=== PATIENT | female | born 1930 | race African-American/Black ===

== ENCOUNTER 2019-07-16 21:04 | Emergency (ER) | payer OTHER ==
[2019-07-16 22:14] LABS: Absolute Lymphocytes (CBC) 2.2 K/uL (0.7-4.9); Basophils % 0.5 % (0-1.3); Hematocrit 34.3 % (36.0-45.0); Lymphocytes % 30.5 % (15.3-44.8); MPV 8.1 fL (7.6-11.3); RBC Red Blood Cell Count 3.68 M/uL (3.86-4.86)
[2019-07-16 22:19] LABS: ALT/SGPT 25 U/L (12-78); AST/SGOT 20 U/L (15-37); Albumin 3.5 g/dL (3.4-5.0); Alkaline Phosphatase 77 U/L (45-117); BUN Blood Urea Nitrogen 21 mg/dL (7-18); Bicarbonate 24 mmol/L (21-32); Bilirubin Direct 0.1 mg/dL (0-0.2); Bilirubin Total 0.3 mg/dL (0.2-1.0); CKMB Creatine Kinase MB < 1.0 ng/mL (0.3-3.6); Creatine Phosphokinase 69 U/L (26-192); Glucose Level 114 mg/dL (74-106); Lipase 201 U/L (73-393); Magnesium 2.1 mg/dL (1.8-2.4); Potassium 3.8 mmol/L (3.5-5.1); Protein, Total 6.8 g/dL (6.4-8.2); Sodium Level 142 mmol/L (136-145); Troponin (Emerg Dept Use Only) < 0.02 ng/mL (0.0-0.045)
[2019-07-17 01:23] LABS: Urine Blood NEGATIVE (NEG); Urine Glucose NEGATIVE (NEG); Urine Protein NEGATIVE (NEG)
[2019-07-17 02:08] LABS: Urine Bacteria <20 /HPF (<20); Urine Culture Reflex Order NOT NEEDED; Urine RBC <5 /HPF (NONE SEEN)
--- NOTE | 2019-07-17 02:17 | ER ---
Nurse's Notes [facility] Name: Amanda Aj Age: 88 yrs Sex: Female : 1930 Arrival Date: 07/16/2019 Time: 21:07 Bed 14 Private MD: Diagnosis: NEAR SYNCOPE Presentation: 07/16 21:20 Presenting complaint: pt granddaughter stated pt collapsed Tuesday at her brother's ak1 . pt denies any pain. pt states she does not recall the event. pt A\T\OX4 at this time, ambulatory. Transition of care: patient was not received from another setting of care. Onset of symptoms was July 14, 2019. Risk Assessment: Do you want to hurt yourself or someone else? Patient reports no desire to harm self or others. Initial Sepsis Screen: Does the patient meet any 2 criteria? No. Patient's initial sepsis screen is negative. Does the patient have a suspected source of infection? No. Patient's initial sepsis screen is negative. Care prior to arrival: None. 21:20 Acuity: TONY 3 ak1 21:20 Method Of Arrival: Ambulatory ak1 Triage Assessment: 21:22 General: Appears in no apparent distress. Behavior is calm, cooperative, appropriate ak1 for age. Pain: Denies pain. Historical: - Allergies: 21:22 No Known Allergies; ak1 - Home Meds: 21:22 aspirin 81 mg Oral TbEC 1 tab once daily [Active]; atorvastatin 10 mg oral tab 1 tab ak1 once daily [Active]; amlodipine oral [Active]; omeprazole Oral [Active]; - PMHx: 21:22 Depression; Hyperlipidemia; Hypertension; GERD; ak1 - PSHx: 21:22 left kindy removed; Hernia repair; Hysterectomy; ak1 - Immunization history:: Adult Immunizations unknown. - Social history:: Smoking status: Patient/guardian denies using tobacco. - Ebola Screening: : No symptoms or risks identified at this time. Screenin:23 Abuse screen: Denies threats or abuse. Denies injuries from another. Nutritional ak1 screening: No deficits noted. Tuberculosis screening: No symptoms or risk factors identified. Fall Risk Fall in past 12 months (25 points). Assessment: 21:41 General: Appears in no apparent distress. Behavior is calm, cooperative, appropriate lp1 for age. Pain: Denies pain. Neuro: Level of Consciousness is awake, alert, obeys commands, Oriented to person, place, situation, Gait is steady. Cardiovascular: Patient's skin is warm and dry. Respiratory: Respiratory effort is even, unlabored, Breath sounds are clear bilaterally. GI: No deficits noted. : No signs and/or symptoms were reported regarding the genitourinary system. EENT: No signs and/or symptoms were reported regarding the EENT system. Derm: Skin is intact, Skin is dry, Skin is normal. Musculoskeletal: No deficits noted. 22:45 Reassessment: Patient appears in no apparent distress at this time. Patient and/or lp1 family updated on plan of care and expected duration. Pain level reassessed. Patient is alert, oriented x 3, equal unlabored respirations, skin warm/dry/pink. 23:45 Reassessment: Patient appears in no apparent distress at this time. No changes from lp1 previously documented assessment. 07/17 00:30 Reassessment: Aware of waiting for repeat lab results; granddaughter at bedside. lp1 01:15 Reassessment: Patient ambulated to bathroom at this time; gait steady. lp1 02:00 Reassessment: Patient appears in no apparent distress at this time. Patient is alert, lp1 oriented x 3, equal unlabored respirations, skin warm/dry/pink. Patient denies pain at this time. Vital Signs: 07/16 21:19 BP 125 / 87; Pulse 74; Resp 16; Temp 97.6; Pulse Ox 99% on R/A; Weight 56.7 kg (R); ak1 Height 5 ft. 6 in. (167.64 cm) (R); Pain 0/10; 22:00 BP 124 / 76; Pulse 74; Resp 14; Pulse Ox 99% on R/A; lp1 22:30 BP 132 / 77; Pulse 71; Resp 12; Pulse Ox 98% on R/A; lp1 23:00 BP 135 / 76; Pulse 72; Resp 12; Pulse Ox 99% on R/A; lp1 07/17 00:00 BP 141 / 84; Pulse 66; Resp 13; Pulse Ox 98% on R/A; lp1 01:00 BP 155 / 71; Pulse 65; Resp 17; Pulse Ox 99% on R/A; lp1 02:00 BP 144 / 74; Pulse 64; Resp 18; Pulse Ox 98% on R/A; Pain 0/10; lp1 07/16 21:19 Body Mass Index 20.18 (56.70 kg, 167.64 cm) ak1 ED Course: 07/16 21:07 Patient arrived in ED. ds1 21:11 Mj Jenkins MD is Attending Physician. tw4 21:19 Arm band placed on Patient placed in an exam room, on a stretcher, Patient notified of ak1 wait time. 21:20 Destinee Johnston, RN is Primary Nurse. lp1 21:21 Triage completed. ak1 21:23 Patient has correct armband on for positive identification. Placed in gown. Bed in low ak1 position. Call light in reach. Side rails up X 1. Adult w/ patient. Pulse ox on. NIBP on. 21:40 Inserted saline lock: 22 gauge in right wrist, using aseptic technique. Blood collected.ds4 21:49 CPK Sent. ds4 21:49 Hepatic Function Sent. ds4 21:49 Lipase Sent. ds4 21:49 Magnesium Sent. ds4 21:50 Protime (+inr) Sent. ds4 21:50 Ptt, Activated Sent. ds4 21:50 Troponin (emerg Dept Use Only) Sent. ds4 21:50 Ckmb Sent. ds4 21:50 CBC with Diff Sent. ds4 21:50 Basic Metabolic Panel Sent. ds4 21:50 Basic Metabolic Panel Sent. ds4 21:50 CBC with Automated Diff Sent. ds4 21:50 CKMB Creatine Kinase MB Sent. ds4 21:59 CT completed. Patient tolerated procedure well. Patient moved back from CT. wy 22:01 CT Head C Spine In Process Unspecified. EDMS 07/17 00:43 No provider procedures requiring assistance completed. lp1 01:12 Troponin (emerg Dept Use Only) Sent. ds4 01:14 Urine Microscopic Only Sent. ds4 02:30 IV discontinued, No redness/swelling at site. Pressure dressing applied. lp1 Administered Medications: No medications were administered Outcome: 02:16 Discharge ordered by . tw4 02:31 Discharged to home ambulatory, with family. lp1 02:31 Condition: good 02:31 Discharge instructions given to patient, family, Instructed on discharge instructions, follow up and referral plans. Demonstrated understanding of instructions, follow-up care. 02:31 Patient left the ED. lp1 Signatures: Dispatcher [employer] EDMS Elida Jasso ds1 Destinee Johnston RN RN lp1 Oli Harris ds4 Dorie Watson RN RN ak1 Jayson Owens Terrence, MD MD tw4
--- NOTE | 2019-07-17 02:17 | EDPHYS ---
Physician Documentation [facility] Name: Amanda Aj Age: 88 yrs Sex: Female : 1930 Arrival Date: 07/16/2019 Time: 21:07 Bed 14 Private MD: ED Physician Mj Jenkins Historical: - Allergies: 07/16 21:22 No Known Allergies; ak1 - Home Meds: 21:22 aspirin 81 mg Oral TbEC 1 tab once daily [Active]; atorvastatin 10 mg oral tab 1 tab ak1 once daily [Active]; amlodipine oral [Active]; omeprazole Oral [Active]; - PMHx: 21:22 Depression; Hyperlipidemia; Hypertension; GERD; ak1 - PSHx: 21:22 left kindy removed; Hernia repair; Hysterectomy; ak1 - Immunization history:: Adult Immunizations unknown. - Social history:: Smoking status: Patient/guardian denies using tobacco. - Ebola Screening: : No symptoms or risks identified at this time. Vital Signs: 21:19 BP 125 / 87; Pulse 74; Resp 16; Temp 97.6; Pulse Ox 99% on R/A; Weight 56.7 kg (R); ak1 Height 5 ft. 6 in. (167.64 cm) (R); Pain 0/10; 22:00 BP 124 / 76; Pulse 74; Resp 14; Pulse Ox 99% on R/A; lp1 22:30 BP 132 / 77; Pulse 71; Resp 12; Pulse Ox 98% on R/A; lp1 23:00 BP 135 / 76; Pulse 72; Resp 12; Pulse Ox 99% on R/A; lp1 07/17 00:00 BP 141 / 84; Pulse 66; Resp 13; Pulse Ox 98% on R/A; lp1 01:00 BP 155 / 71; Pulse 65; Resp 17; Pulse Ox 99% on R/A; lp1 02:00 BP 144 / 74; Pulse 64; Resp 18; Pulse Ox 98% on R/A; Pain 0/10; lp1 07/16 21:19 Body Mass Index 20.18 (56.70 kg, 167.64 cm) ak1 MDM: 07/16 21:11 Patient medically screened. tw4 07/16 21:18 Order name: Basic Metabolic Panel tw4 07/16 21:18 Order name: CBC with Diff 07/16 21:18 Order name: Ckmb 07/16 21:18 Order name: CPK; Complete Time: 23:02 4 07/16 23:02 Interpretation: Within normal limits: CPK 69. 07/16 21:18 Order name: Hepatic Function; Complete Time: 23:02 4 07/16 23:02 Interpretation: Within normal limits. 07/16 21:18 Order name: Lipase; Complete Time: 23:02 tw4 07/16 23:02 Interpretation: Within normal limits: LIP 201. 07/16 21:18 Order name: Magnesium; Complete Time: 23:02 07/16 23:02 Interpretation: Within normal limits: MG 2.1. 07/16 21:18 Order name: Protime (+inr); Complete Time: 23:02 07/16 23:02 Interpretation: Within normal limits: PT 11.8. 07/16 21:18 Order name: Ptt, Activated; Complete Time: 23:02 07/16 23:03 Interpretation: Within normal limits: PTT 28.1. 07/16 21:18 Order name: Troponin (emerg Dept Use Only); Complete Time: 23:02 07/16 23:03 Interpretation: Within normal limits: TROPED < 0.02. 07/16 21:19 Order name: Basic Metabolic Panel; Complete Time: 23:02 EDMS 07/16 23:02 Interpretation: Normal except: CL 110; BUN 21; CRE 1.62; GFR 36; GLUC 114. 07/16 21:19 Order name: CBC with Automated Diff; Complete Time: 23:02 EDMS 07/16 23:02 Interpretation: Normal except: RBC 3.68; HGB 11.5; HCT 34.3. 07/16 21:19 Order name: CKMB Creatine Kinase MB; Complete Time: 23:02 EDMS 07/16 23:03 Interpretation: Within normal limits: CKMB < 1.0. 07/16 23:45 Order name: Troponin (emerg Dept Use Only) 07/16 21:18 Order name: Call for Old EKG; Complete Time: 21:21 07/16 21:18 Order name: CT Head C Spine 07/16 21:18 Order name: EKG; Complete Time: 21:19 tw4 07/16 21:18 Order name: Cardiac monitoring; Complete Time: 21:21 tw4 07/16 21:18 Order name: EKG - Nurse/Tech; Complete Time: 21:21 tw4 07/16 21:18 Order name: IV Saline Lock; Complete Time: 21:49 tw4 07/16 21:18 Order name: Labs collected and sent; Complete Time: :49 tw4 07/16 21:18 Order name: NPO; Complete Time: :28 tw4 07/16 21:18 Order name: O2 Per Protocol; Complete Time: 21:21 tw4 07/16 21:18 Order name: O2 Sat Monitoring; Complete Time: 21:21 tw4 07/16 21:18 Order name: Urine Dipstick-Ancillary (obtain specimen); Complete Time: 01:14 tw4 07/17 00:50 Order name: Urine Dipstick-Ancillary (obtain specimen); Complete Time: 01:12 tw4 07/17 01:12 Order name: Urine Microscopic Only; Complete Time: 02:16 ds4 07/17 01:14 Order name: Urine Dipstick--Ancillary (enter results) ds4 Administered Medications: No medications were administered Disposition: 07/17/19 02:16 Discharged to Home. Impression: NEAR SYNCOPE. - Condition is Stable. - Discharge Instructions: Near-Syncope, [id number], Vasovagal Syncope, Adult. - Medication Reconciliation Form, Thank You Letter, Antibiotic Education, Prescription Opioid Use form. - Follow up: Private Physician; When: Upon discharge from the Emergency Department; Reason: Recheck today's complaints, Continuance of care. - Problem is new. - Symptoms have improved. Addendum: 08/07/2019 05:59 Addendum: HPI: Pt is a 88 year old female that comes to the ED accompanied by her t w4 daughter after having a near syncope episode at a that she attended 2 days ago. Pt does not recall the event. PT denies any symptoms currently. Pt denies CP, SOB abdominal pain and nausea vomiting or diarrhea . Addendum: ROS: Neuro: positive for near syncope, negative for weakness, numbness CV:negative for CP, palpitations Abdomen: negative for abdominal pain, nausea, vomiting All other systems negative except a marked . Addendum: PE: Gen: well developed elderly female in NAD HEENT: PERRLA, EOMI Neck: supple, nontender, good ROM Resp: CTAB, CV: RRR nl S1, S2 Abdomen: nontender, nondistended good BS, no masses , no pulsatile masses Ext: nontender, no edema Neuro: alert and oriented times three, CN grossly intact, strength and sensation intact. Addendum: ED: EKG unremarkable, laboratory evaluation unremarkable CT imaging and X-ray negative. Pt most likely had a vasovagal episode with lack of symtpoms. Will have patient followup as an outpatient with PCP.Pt instructed to return to the Ed if symptoms worsen. Addendum: Diff diagnosis: AAA, PE, CVA, AL. Signatures: Dispatcher [employer] EDMS Destinee Johnston, RN RN lp1 Dorie Watson RN RN ak1 Mj Jenkins MD MD tw4 Kahtarina Coker mw2 Corrections: (The following items were deleted from the chart) 07/17 02:31 02:16 07/17/2019 02:16 Discharged to Home. Impression: NEAR SYNCOPE. Condition is lp1 Stable. Forms are Medication Reconciliation Form, Thank You Letter, Antibiotic Education, Prescription Opioid Use. Follow up: Private Physician; When: Upon discharge from the Emergency Department; Reason: Recheck today's complaints, Continuance of care. Problem is new. Symptoms have improved. tw4
[2019-07-17 02:37] VITALS: TEMP 97.6
[2019-07-17 02:45] VITALS: BP 144/74; O2SAT 98
--- NOTE | 2019-07-17 10:18 | EKG ---
Test Date: 2019-07-16 Test Time: 21:15:28 [employer] Consult[employer] Insurance: [employer] MEASUREMENT RESULTS: Intervals: Rate: 73 [place]: 150 QRSD: 74 QT: 390 QTc: 429 [place]: P: 88 [place]: 150 QRS: 46 T: 27 INTERPRETIVE STATEMENTS: Normal sinus rhythm Nonspecific ST abnormality Abnormal ECG No previous ECG available for comparison Electronically Signed On 07-17-19 10:16:09 CDT by Jaylan Bailey
--- NOTE | 2019-07-17 10:22 | RAD REPORT ---
EXAM DESCRIPTION: CT - Head C Spine Mpr Wo Con - 07/17/2019 8:55 am CLINICAL HISTORY: Syncope COMPARISON: None. TECHNIQUE: CT HEAD NECK WITHOUT IV CONTRAST on 07/16/2019 9:18 PM CDT This exam was performed according to our departmental dose-optimization program, which includes autom ated exposure control, adjustment of the mA and/or kV according to patient size and/or use of iterati ve reconstruction technique. FINDINGS: Brain: There is no acute hemorrhage, mass effect or midline shift. Nava-white differentiat ion is preserved. There is no hydrocephalus. There is mild diffuse cerebral atrophy. The calvarium is intact. Orbits and globes are unremarkable. The paranasal sinuses are clear. Mastoid air cells are clear. Cervical Spine: There is no acute fracture. Alignment is anatomic. There are ventral osteophytes at m ost levels. There is mild left and moderate right-sided facet arthritis. There is mild narrowing of the C4-5 and C5-6 discs. Vertebral body heights are preserved. Soft tissue s are unremarkable. IMPRESSION: No posttraumatic findings. Electronically signed by: Alvaro Call MD 07/16/2019 10:24 PM CDT Due to temporary technical issues with the PACS/Fluency reporting system, reports are being signed by the in house radiologist as a courtesy to ensure prompt reporting. The interpreting radiologist is f ekaterinaly responsible for the content of the report.
== END 2019-07-17 02:31 | disposition home or self-care (01) ==
LOC: ER 21:04
DX: R55 Syncope and collapse (principal); I10 Essential (primary) hypertension; E78.5 Hyperlipidemia, unspecified; F32.9 Major depressive disorder, single episode, unspecified; Z79.82 Long term (current) use of aspirin
CPT/HCPCS: 36415; 70450; 72125; 80048; 80076; 81003; 81015; 82550; 82553; 83690; 83735; 84484; 85025; 85610; 85730; 93005; 99284